=== PATIENT | female | born 1990 | race Caucasian/White ===

== ENCOUNTER 2018-07-05 10:07 | Emergency (ER) | payer MEDICAID ==
[~2018-07-05] VITALS: Ht 160 cm; Wt 60.0 kg
[2018-07-05 10:15] VITALS: BP 114/75
[2018-07-05 10:41] LABS: URINE HCG NEGATIVE (NEG)
[2018-07-05 10:43] LABS: CLARITY,URINE CLOUDY (Clear); COLOR,URINE YELLOW (Yellow); GLUCOSE, URINE NEGATIVE (Neg); KETONES,URINE TRACE mg/dl (Neg); LEUKOCYTE ESTERASE ,URINE NEGATIVE (Neg); NITRITES, URINE NEGATIVE (Neg); OCCULT BLOOD,URINE TRACE-LYSED (Neg); PH,URINE 5.5 (4.8-8.0); PROTEIN,URINE NEGATIVE (Neg); UROBILINOGEN,URINE 0.2 E.U/dL (0.2-1.0)
[2018-07-05 10:44] LABS: UA COLLECTION TYPE CLN CATCH MIDSTREAM
[2018-07-05 10:55] LABS: MUCUS STRANDS FEW /LPF (Neg); SQUAMOUS EPITHELIAL CELL,UR MODERATE /LPF (FEW)
[2018-07-05 10:57] LABS: BACTERIA,URINE NONE SEEN /HPF (Neg); CAL OXALATE CRYSTALS 3+ /HPF (NEGATIVE); RBC,URINE NONE SEEN /HPF (0-2); WBC,URINE 0-4 /HPF (0-4)
== END 2018-07-05 11:20 | disposition home or self-care (01) ==
LOC: ER 10:09
DX: R10.9 Unspecified abdominal pain (principal)
CPT/HCPCS: 81001; 81025; 99283

== ENCOUNTER 2020-07-27 13:50 | Emergency (ER) | payer MEDICAID ==
[~2020-07-27] VITALS: Ht 160 cm; Wt 59.1 kg
[2020-07-27] MEDS ORDERED: LIDO20SO16 PO (15:29)
== END 2020-07-27 15:40 | disposition home or self-care (01) ==
LOC: ER 13:50
DX: J02.9 Acute pharyngitis, unspecified (principal); F17.200 Nicotine dependence, unspecified, uncomplicated; Z79.899 Other long term (current) drug therapy
CPT/HCPCS: 99283

== ENCOUNTER 2025-02-07 21:46 | Emergency (ER) | payer MEDICAID ==
[~2025-02-07] VITALS: Ht 160 cm; Wt 62.1 kg
[~2025-02-07 21:46] MED LIST: LIDO20SO16 PO
[2025-02-07 21:51] VITALS: BP 140/84; PULSE 98; RESP 18; TEMP 98.7; O2SAT 100
[2025-02-07] MEDS ORDERED: AMOX-117 PO (22:24)
--- NOTE | 2025-02-07 22:24 | Physician Documentation ---
History of Present Illness ~ Chief Complaint: Ear Pain Stated Complaint: EAR INFECTION Time Seen by MD: 22:16 HPI Patient is seen today with complaints of sensation of swelling of her left ear canal that started yesterday. Patient's safe it is painful and she denies any recent swimming and denies any drainage from the left ear. Patient denies any fevers or chills and has no other concern or complaint at this time. She does complain of pain just in front of the left ear. Medication Reconciliation Allergies: Coded Allergies: No Known Allergies (Unverified , 02/07/25) Scheduled Amox Tr/Potassium Clavulanate (Augmentin 875-125 Tablet), 1 TAB PO Q12H Lidocaine Hcl (Xylocaine Viscous), 5 ML PO Q2H PRN SORE THROAT Past Medical History Past Medical History: No Pertinent History Past Surgical History: noncontributory Alcohol Use: None Drug Use: none Lives with: Family Lives In: Home Review of Systems Constitutional: Denies: chills, fever, weakness Eyes: Denies: pain, blurred vision ENT: Denies: ear pain, nose pain, throat pain, mouth pain Respiratory: Denies: cough, shortness of breath Cardiovascular: Denies: chest pain, palpitations Gastrointestinal: Denies: abdominal pain, nausea, vomiting Genitourinary: Denies: burning, dysuria Female Genitalia: Denies: vaginal discharge, pelvic pain Neurological: Denies: headache, dizziness Musculoskeletal: Denies: pain, swelling Integumentary: Denies: rash, lesions Allergic/Immunologic: Denies: hives, itching Hematologic/Lymphatic: Denies: no symptoms reported Psychiatric: Denies: depression, anxiety Physical Exam Vital Signs: Temperature: 98.7, Source: Oral, Heart Rate: 98, Respiratory Rate: 18, BP: 140/84, Pulse Oximetry: 100, Weight: 62.090 Oxygen Flow Rate: 0 Physical Exam General: Awake and Alert, no acute distress. HEENT: Patient on exam does have significantly swollen mass consistent with swollen preauricular node or lymphadenopathy of the left preauricular area about the size of a large marble that appears to extend swelling to the canal of the left ear canal. I do not appreciate any significant erythema of the canal or purulent drainage or discharge from the left canal. Patient does have tende rness to palpation of the tragus of the left ear as well as movement of the auricle as well as significant tenderness to palpation of the swollen mass in the preauricular area on the left side. Conjunctiva pink, Sclera clear, Mucus Membranes moist. Neck: Supple without masses and tenderness. Resp: Unlabored. Lungs clear to auscultation bilaterally. Heart: Regular Rate and rhythm, normal S1 and S2 without murmur, rub or gallop. Extremities: No cyanosis,clubbing or edema. Skin: Warm and Dry. Progress Results/Orders Results/Orders Completed Orders - MAURY LAINEZ PAC Amox Tr/Potassium Clavulanate (Augmentin (02/07/25 22:17) Medications Received in ER Medications (Trade) Dose Ordered Sig/Ángel Route PRN Reason Start Time Stop Time Status Last Admin Dose Admin (Augmentin 875-125mg tablet) 1 tab ONCE STAT PO 02/07/25 22:17 02/07/25 22:22 DC 02/07/25 22:31 1 TAB Vital Signs 02/07/25 21:51 Temp 98.7 Pulse 98 Resp 18 B/P (MAP) 140/84 Pulse Ox 100 O2 Flow Rate 0 Medical Decision Making Findings Patient is seen today with complaints of sensation of swelling of her left ear canal that started yesterday. Patient's safe it is painful and she denies any recent swimming and denies any drainage from the left ear. Patient denies any fevers or chills and has no other concern or complaint at this time. She does complain of pain just in front of the left ear. Patient was started on Augmentin 875/125 mg, one tab in the ED tonight as well as prescription sent to patient's pharmacy one tab by mouth twice a day for 10 days. Patient will return to ED in 2-3 days if no better as needed sooner. Return to ED with any worsening, concerning or changing symptoms. Otherwise patient will follow up with primary care in 3-5 days if no better as needed sooner. Patient refused otic drops at this time. Departure Disposition: HOME / SELF CARE / HOMELESS Impression: Primary Impression: Preauricular lymphadenopathy Additional Impression: Otitis externa Qualified Codes: H60.502 - Unspecified acute noninfective otitis externa, left ear Condition: Stable Discharge Instructions: Earache, Adult Additional Instructions: Patient was started on Augmentin 875/125 mg, one tab in the ED tonight as well as prescription sent to patient's pharmacy one tab by mouth twice a day for 10 days. Patient will return to ED in 2-3 days if no better as needed sooner. Return to ED with any worsening, concerning or changing symptoms. Otherwise patient will follow up with primary care in 3-5 days if no better as needed sooner. Referrals: NO PRIMARY CARE PROVIDER (PCP) Prescriptions Amox Tr/Potassium Clavulanate 875/125 MG (Augmentin 875/125 MG) 875 Mg-125 Mg Tablet 1 TAB PO Q12H for 10 Days, #20 TAB Prov: MAURY LAINEZ PAC 02/07/25 Amox Tr/Potassium Clavulanate (Augmentin 875-125 Tablet) 1 Each Tablet 1 TAB PO Q12H for 10 Days, #20 TAB Prov: MAURY LAINEZ PAC 02/07/25 Signature Scribe Signature: No scribe Attestation: No scribe MAURY LAINEZ PAC Feb 07, 2025 22:24
[2025-02-07] MEDS: amox tr/potassium clavulanate 875/125mg TAB PO STA (22:31)
[2025-02-07] MEDS ORDERED: AMOX-580 PO (22:40)
== END 2025-02-07 22:34 | disposition home or self-care (01) ==
LOC: ER 21:47
DX: R59.0 Localized enlarged lymph nodes (principal); H60.92 Unspecified otitis externa, left ear
CPT/HCPCS: 99283

== ENCOUNTER 2025-03-04 17:00 | Emergency (ER) | payer MEDICAID ==
[~2025-03-04] VITALS: Ht 160 cm; Wt 50.9 kg
[2025-03-04 17:17] VITALS: BP 119/85; PULSE 82; RESP 16; O2SAT 99
[2025-03-04] MEDS ORDERED: FLUT16SP2 BOTHNARES (18:10)
--- NOTE | 2025-03-04 18:10 | Physician Documentation ---
History of Present Illness ~ Chief Complaint: Ear Pain Stated Complaint: EAR PAIN Time Seen by MD: 17:36 OK to notify your PCP?: Yes Source: patient Mode of Arrival: POV Exam Limitations: no limitations HPI 35-year-old patient who returns for left ear pressure. She was seen here recently and treated with Augmentin for an inner ear infection which fully resolved but now she is having some muffled hearing and pressure on the left side. She denies any fevers or other upper respiratory infection symptoms. Medication Reconciliation Allergies: Coded Allergies: No Known Allergies (Unverified , 03/04/25) Scheduled Lidocaine Hcl (Xylocaine Viscous), 5 ML PO Q2H PRN SORE THROAT Past Medical History Past Medical History: No Pertinent History Past Surgical History: noncontributory Alcohol Use: None Drug Use: none Lives with: Family Lives In: Home Review of Systems All Other Systems at this time: Reviewed and Negative Physical Exam Vital Signs: RN Vital Signs have been reviewed: Yes, Temperature: 97.9, Source: Temporal, Heart Rate: 82, Respiratory Rate: 16, BP: 119/85, Pulse Oximetry: 99, Weight: 50.850 Oxygen Flow Rate: 0 Pulse Oximetry Reflects: adequate oxygenation Physical Exam General: Alert, no distress. HEENT: No injection, moist mucous membranes. Right TM normal. Left TM retracted. Bilateral external canals normal. No preauricular lymphadenopathy. No tenderness with movement of the auricle. Neck: Full range of motion. No cervical lymphadenopathy. Respiratory: No respiratory distress, equal chest rise and fall. Chest: No accessory muscle use. Cardiovascular: Regular rate and rhythm. Gastrointestinal: Nondistended. Extremities: Normal range of motion, no deformity. Neurologic: Oriented x4. Psychiatric: Normal mood and affect. Skin: Normal color, warm and dry. Progress Results/Orders Reviewed/noted all lab results: Yes Results/Orders Vital Signs 03/04/25 17:17 Temp 97.9 Pulse 82 Resp 16 B/P (MAP) 119/85 Pulse Ox 99 O2 Flow Rate 0 Medical Decision Making Additional info obtained from: old records Findings 35-year-old female with a normal physical exam other than a retracted left tympanic membrane. She is having some muffled hearing on that side but otherwise is asymptomatic. She was prior treated for a ear infection with amoxicillin and finished her course of antibiotics. We discussed that she should follow up with the Ear Nose Throat doctor she continues to have problems and I prescribed Flonase to help with her Eustachian tube dysfunction. Ear Diff. Dx: Considerations: Include: Foreign body, Otitis externa, Barotrauma, Otitis media, Perforation, Tympanic Membrane Injury Departure Disposition: 01 HOME / SELF CARE / HOMELESS Impression: Primary Impression: Eustachian tube dysfunction Condition: Stable Additional Instructions: Please follow up with her primary care provider in the next 3-5 days for a referral to an (ENT) Ear Nose Throat doctor for further treatment of your ear if needed. Referrals: NO PRIMARY CARE PROVIDER (PCP) Prescriptions Fluticasone Propionate (Flonase) 16 Gm [place].susp 2 SPRAYS BOTHNARES HS for 30 Days, #16 GM Prov: GUDELIA FOOTE 03/04/25 Education Educated: Patient Educated regarding: diagnosis, treatment, prognosis, need for follow up Additional Comment Medical Screen Exam This patient recieved a medical screening examination. After reviewing the individual's medical complaints with presenting symptoms and performing an appropriate physical examination, it was determined that no immediate life- threatening emergency medical condition is present. This individual is also not a women having contractions. Signature Scribe Signature: . Attestation: Scribed for Gudelia Foote by Gudelia Boles NP . 03/04/25 18:13 Parts of this note were created using [employer] voice recognition software program. While efforts were made to correct any mistakes made by this voice recognition software program, nonsensical phrases may remain in this note. In addition, there may be errors and syntax, grammar, content and spelling. GUDELIA FOOTE Mar 04, 2025 18:09
[2025-03-04 18:37] VITALS: TEMP 97.9
== END 2025-03-04 18:38 | disposition home or self-care (01) ==
LOC: ER 17:00
DX: H69.92 Unspecified Eustachian tube disorder, left ear (principal)
CPT/HCPCS: 99282